=== PATIENT | female | born 1990 | race American Indian/Alaskan Native ===

== ENCOUNTER 2017-12-23 13:29 | Emergency (ER) | payer SELFPAY ==
--- NOTE | 2017-12-23 17:04 | Emergency Department Report ---
Chief Complaint: Urogenital-Female Stated Complaint: IRREGULAR PERIOD/PAIN Time Seen by Provider: 12/23/17 16:51 - HPI History of Present Illness: 27-year-old female presents to the emergency department with complaint of heavy vaginal bleeding that started yesterday that she believes is a second menstrual cycle within 1 month. She does admit to a history of some abnormal menstrual cycles. She denies any abdominal or pelvic pain at this time. She uses tampons instead of pads but says she has gone through multiple of those since this began. She is not currently have an RN STAFFING. She has not taken anything for her symptoms prior to presentation. - ROS Review of Systems: Positive for vaginal bleeding Negative for vaginal discharge, dysuria, fever, nausea, vomiting, abdominal pain - Exam Vital Signs: Vital Signs 12/23/17 14:09 Temperature 98.7 F Pulse Rate 86 Respiratory 16 Rate Blood Pressure 133/77 O2 Sat by Pulse 98 Oximetry Physical Exam: Patient does not appear in any acute distress. Normal some cardamom on sounds auscultation. Normal bowel sounds. Abdomen is soft. MSE screening note: Focused history and physical exam performed. Due to findings the following was ordered: I have ordered a CBC, urinalysis and urine test. ED Disposition for MSE Condition: Stable Referrals: PRIMARY CARE, [Primary Care Provider] - 3-5 Days
[2017-12-23 17:21] LABS: Bilirubin,Urine NEG (Negative); Color,Urine Yellow (Yellow); Hyaline Casts,Urine 1 /LPF; Protein,Urine <15 mg/dL mg/dL (Negative); Urobilinogen,Urine < 2.0 mg/dL (<2.0); WBC,Urine < 1.0 /HPF (0.0-6.0)
[2017-12-23 17:23] LABS: Blood,Urine MOD (Negative); HCG Qualitative,Urine Negative (Negative)
[2017-12-23 17:42] LABS: Basophils % (Auto) 0.4 % (0.0-1.8); Eosinophils % (Auto) 0.3 % (0.0-4.3); Hemoglobin 11.8 gm/dl (10.1-14.3); Lymphocytes # (Auto) 1.7 K/mm3 (1.2-5.4); Lymphocytes % (Auto) 31.8 % (13.4-35.0); Mean Corpuscular HGB Conc 33 % (30-34); Mean Corpuscular Volume 79 fl (79-97); Monocytes # (Auto) 0.4 K/mm3 (0.0-0.8); Monocytes % (Auto) 8.1 % (0.0-7.3); Platelet Count 402 K/mm3 (140-440); Red Blood Count 4.54 M/mm3 (3.65-5.03); Red Cell Distribution Width 17.2 % (13.2-15.2)
[2017-12-23 17:43] LABS: Mean Corpuscular Hemoglobin 26 pg (28-32)
--- NOTE | 2017-12-23 17:53 | Emergency Department Report ---
ED Female HPI - General Chief complaint: Urogenital-Female Stated complaint: IRREGULAR PERIOD/PAIN Time Seen by Provider: 12/23/17 16:51 Source: patient Mode of arrival: Ambulatory Limitations: No Limitations - History of Present Illness Initial comments: 27F past medical history none presents with complaint of second menstrual period within 1 month time frame. She states she does have history of slightly irregular periods. Patient states she has been changing through several tampons /pads more so than usual. Patient denies weakness chest pain palpitations shortness of breath. Denies use of any hormones. Last menstrual period was approximately 3 weeks ago as per patient. - Related Data Previous Rx's Medication Instructions Recorded Last Taken Type Amoxicillin [Amoxicillin TAB] 875 mg PO BID #20 tablet 09/22/13 Unknown Rx guaiFENesin/CODEINE [Robitussin AC] 5 ml PO Q6H PRN #120 ml 09/22/13 Unknown Rx Ferrous Sulfate [Iron] 325 mg PO QDAY #30 tablet 12/23/17 Unknown Rx Ibuprofen [Motrin] 800 mg PO Q8HR PRN #30 tablet 12/23/17 Unknown Rx Allergies Allergy/AdvReac Type Severity Reaction Status Date / Time No Known Allergies Allergy Verified 09/22/13 05:23 ED Review of Systems ROS: Stated complaint: IRREGULAR PERIOD/PAIN Other details as noted in HPI Constitutional: denies: chills, fever Eyes: denies: eye pain, eye discharge, vision change ENT: denies: ear pain, throat pain Respiratory: denies: cough, shortness of breath, wheezing Cardiovascular: denies: chest pain, palpitations Endocrine: no symptoms reported Gastrointestinal: denies: abdominal pain, nausea, diarrhea Genitourinary: abnormal menses. denies: urgency, dysuria, discharge Musculoskeletal: denies: back pain, joint swelling, arthralgia Skin: denies: rash, lesions Neurological: denies: headache, weakness, paresthesias Psychiatric: denies: anxiety, depression Hematological/Lymphatic: denies: easy bleeding, easy bruising ED Past Medical Hx - Past Medical History Previous Medical History?: No - Surgical History Past Surgical History?: No - Social History Smoking Status: Current Every Day Smoker Substance Use Type: None - Medications Home Medications: Home Medications Medication Instructions Recorded Confirmed Last Taken Type Amoxicillin [Amoxicillin TAB] 875 mg PO BID #20 tablet 04/22/14 Unknown Rx guaiFENesin/CODEINE [Robitussin AC] 5 ml PO Q6H PRN #120 ml 09/22/13 Unknown Rx Ferrous Sulfate [Iron] 325 mg PO QDAY #30 tablet 12/23/17 Unknown Rx Ibuprofen [Motrin] 800 mg PO Q8HR PRN #30 tablet 12/23/17 Unknown Rx ED Physical Exam - General Limitations: No Limitations General appearance: alert, in no apparent distress - Head Head exam: Present: atraumatic, normocephalic - Eye Eye exam: Present: normal appearance - ENT ENT exam: Present: mucous membranes moist - Neck Neck exam: Present: normal inspection - Respiratory Respiratory exam: Present: normal lung sounds bilaterally. Absent: respiratory distress - Cardiovascular Cardiovascular Exam: Present: regular rate, normal rhythm. Absent: systolic murmur, diastolic murmur, rubs, gallop - GI/Abdominal GI/Abdominal exam: Present: soft, normal bowel sounds - Extremities Exam Extremities exam: Present: normal inspection - Back Exam Back exam: Present: normal inspection - Neurological Exam Neurological exam: Present: alert, oriented X3 - Psychiatric Psychiatric exam: Present: normal affect, normal mood - Skin Skin exam: Present: warm, dry, intact, normal color. Absent: rash ED Course Vital Signs 12/23/17 12/23/17 14:09 18:07 Temperature 98.7 F 98.4 F Pulse Rate 86 94 H Respiratory 16 16 Rate Blood Pressure 133/77 Blood Pressure 159/77 [Left] O2 Sat by Pulse 98 100 Oximetry ED Medical Decision Making - Lab Data Result diagrams: 12/23/17 17:27 - Medical Decision Making A/P: Menometrorrhagia 1-CBC is unremarkable, urinalysis shows large blood. Patient is not currently 2-follow-up with [facility] emphasized to the patient for outpatient workup of dysfunctional uterine bleeding. Patient stated that she would make follow-up appointment. Patient is not complaining of any pain before discharge. 3-iron supplementation, Motrin Critical care attestation.: If time is entered above; I have spent that time in minutes in the direct care of this critically ill patient, excluding procedure time. ED Disposition Clinical Impression: Menometrorrhagia Menorrhagia Qualifiers: Menorrahagia type: with irregular cycle Qualified Code(s): N92.1 - Excessive and frequent menstruation with irregular cycle Disposition: DC-01 TO HOME OR SELFCARE Is pt being admited?: No Does the pt Need Aspirin: No Condition: Stable Instructions: Menorrhagia (ED) Prescriptions: Ferrous Sulfate [Iron] 325 mg PO QDAY #30 tablet Ibuprofen [Motrin] 800 mg PO Q8HR PRN #30 tablet PRN Reason: Pain , Severe (7-10) Referrals: [facility] [Provider Group] - 3-5 Days [facility] [Provider Group] - 3-5 Days [facility] [Provider Group] - 3-5 Days Forms: Work/School Release Form(ED) Time of Disposition: 17:55
[2017-12-23 18:08] VITALS: BP 159/77
== END 2017-12-23 18:09 | disposition home or self-care (01) ==
LOC: ED 13:29
DX: N92.1 Excessive and frequent menstruation with irregular cycle (principal); F17.200 Nicotine dependence, unspecified, uncomplicated
CPT/HCPCS: 36415; 81001; 81025; 85025; 99283